=== PATIENT | male | born 1960 | race Caucasian/White ===

== ENCOUNTER 2016-11-21 09:14 | Emergency (ER) | payer OTHER ==
[2016-11-21 09:28] VITALS: BMI 34.7
--- NOTE | 2016-11-21 09:45 | PDOC ---
History of Present Illness - General History Source: Patient, Spouse Exam Limitations: No Limitations - History of Present Illness Initial Comments: 11/21/16 10:13 The patient is a 56-year-old man, accompanied by his , with no past medical history who presents to the emergency department with complaints of abdominal pain for the past 2 months. Patient states he underwent an umbilical hernia repair in May but has been experiencing mid-epigastric pain, described as a tight sensations, that radiates down his left lower quadrant with a rated 7/10 in severity. He notes that his abdominal pain is worse after eating meals. He states that his abdominal pain has worsened, as of this morning, as he became nauseous and vomited twice this morning (NBNB). He also reports having a slight headache and to be slightly lightheaded, as a result of vomiting. He took Tylenol for his headache this morning that provided little relief. No visual changes, neck pain, back pain, chets pain, cough, shortness of breath. He also notes experiencing suprapubic pain, dysuria, described as burning sensations and penile pain when he urinates. He also expresses that he feels as if his urine is thicker than usual. No flank pain, hematuria. No changes in his bowel movements. Last bowel movement was at approximately 04:30 this morning and was normal. No hematochezia, melena. Allergies: None Known Past Surgical History: Questionable Cholecystectomy. Umbilical Hernia. Social History: Current everyday smoker (smokes approximately 10 cigarettes/day ; wants to quit). No EtOH and recreational drug use. <Juliette Younger - Last Filed: 11/21/16 10:44> <Joan Ruiz - Last Filed: 11/21/16 15:08> - General Chief Complaint: Pain, Acute Stated Complaint: ABD PAIN Time Seen by Provider: 11/21/16 09:35 Past History <Juliette Younger - Last Filed: 11/21/16 10:44> - Past Medical History Other medical history: DENIES. - Surgical History Abdominal Surgery: Yes (HERNIA) - Psycho/Social/Smoking Cessation Hx Suicidal Ideation: No Smoking History: Current every day smoker Have you smoked in the past 12 months: Yes Information on smoking cessation initiated: No <Joan Ruiz - Last Filed: 11/21/16 15:08> - Past Medical History Allergies/Adverse Reactions: Allergies Allergy/AdvReac Type Severity Reaction Status Date / Time No Known Allergies Allergy Verified 11/21/16 09:23 Home Medications: Ambulatory Orders Oxycodone HCl/Acetaminophen [Percocet 5-325 mg Tablet] 1 tab PO Q6H PRN #12 tablet MDD 4 tabs 11/21/16 Review of Systems - Review of Systems Able to Perform ROS?: Yes Comments:: 11/21/16 10:13 GENERAL/CONSTITUTIONAL: No fever or chills. No weakness. HEAD, EYES, EARS, NOSE AND THROAT: No change in vision. No ear pain or discharge. No sore throat. CARDIOVASCULAR: No chest pain or shortness of breath. RESPIRATORY: No cough, wheezing, or hemoptysis. GASTROINTESTINAL: Yes: Abdominal Pain. Nausea. Vomiting. No diarrhea or constipation. GENITOURINARY: Yes: Dysuria. Change in urination. No frequency. MUSCULOSKELETAL: No joint or muscle swelling or pain. No neck or back pain. SKIN: No rash NEUROLOGIC: Yes: Headache. Lightheadedness. No vertigo, loss of consciousness, or change in strength/sensation. ENDOCRINE: No increased thirst. No abnormal weight change. HEMATOLOGIC/LYMPHATIC: No anemia, easy bleeding, or history of blood clots. ALLERGIC/IMMUNOLOGIC: No hives or skin allergy. <Juliette Younger - Last Filed: 11/21/16 10:44> *Physical Exam - Vital Signs Last Vital Signs Temp Pulse Resp BP Pulse Ox 98.1 F 67 19 115/80 97 11/21/16 09:23 11/21/16 09:23 11/21/16 09:23 11/21/16 09:23 11/21/16 09:23 - Physical Exam Comments: 11/21/16 10:13 GENERAL: Awake, alert, and fully oriented, in no acute distress HEAD: No signs of trauma EYES: PERRLA, EOMI, sclera anicteric, conjunctiva clear ENT: Auricles normal inspection, hearing grossly normal, nares patent, oropharynx clear without exudates. Moist mucosa NECK: Normal ROM, supple, no lymphadenopathy, JVD, or masses LUNGS: Breath sounds equal, clear to auscultation bilaterally. No wheezes, and no crackles HEART: Regular rate and rhythm, normal S1 and S2, no murmurs, rubs or gallops ABDOMEN: Soft, nontender, normoactive bowel sounds. No guarding, no rebound. No masses EXTREMITIES: Normal range of motion, no edema. No clubbing or cyanosis. No cords, erythema, or tenderness NEUROLOGICAL: Cranial nerves II through XII grossly intact. Normal speech <Juliette Younger - Last Filed: 11/21/16 10:44> - Vital Signs Last Vital Signs Temp Pulse Resp BP Pulse Ox 98.1 F 67 19 115/80 97 11/21/16 09:23 11/21/16 09:23 11/21/16 09:23 11/21/16 09:23 11/21/16 09:23 - Physical Exam Comments: GENERAL: Awake, alert, and fully oriented, in no acute distress. Appears uncomfortable. HEAD: No signs of trauma EYES: PERRLA, EOMI, +scleral icterus, conjunctiva clear ENT: Auricles normal inspection, hearing grossly normal, nares patent, oropharynx clear without exudates. Moist mucosa NECK: Normal ROM, supple, no lymphadenopathy, JVD, or masses LUNGS: Breath sounds equal, clear to auscultation bilaterally. No wheezes, and no crackles HEART: Regular rate and rhythm, normal S1 and S2, no murmurs, rubs or gallops ABDOMEN: Soft, +epigastric tenderness, hyperactive bowel sounds. No guarding, no rebound. No masses EXTREMITIES: Normal range of motion, no edema. No clubbing or cyanosis. No cords, erythema, or tenderness NEUROLOGICAL: Cranial nerves II through XII grossly intact. Normal speech, normal gait SKIN: Warm, Dry, normal turgor, no rashes or lesions noted. <Joan Ruiz - Last Filed: 11/21/16 15:08> ED Treatment Course - LABORATORY CBC & Chemistry Diagram: 11/21/16 09:45 11/21/16 09:45 <Juliette Younger - Last Filed: 11/21/16 10:44> - LABORATORY CBC & Chemistry Diagram: 11/21/16 09:45 11/21/16 09:45 <Joan Ruiz - Last Filed: 11/21/16 15:08> Medical Decision Making - Medical Decision Making CT results d/w patient and at bedside. No acute findings. Stable for DC home with outpatient f/u. <Joan Ruiz - Last Filed: 11/21/16 15:08> *DC/Admit/Observation/Transfer - Attestations Scribe Attestion: 11/21/16 10:13 Documentation prepared by Juliette Younger, acting as medical editor for Joan Ruiz MD. <Juliette Younger - Last Filed: 11/21/16 10:44> - Discharge Dispostion Admit: No <Joan Ruiz - Last Filed: 11/21/16 15:08> Diagnosis at time of Disposition: Abdominal pain Qualifiers: Abdominal location: upper abdomen, unspecified Qualified Code(s): R10.10 - Upper abdominal pain, unspecified - Discharge Dispostion Disposition: HOME Condition at time of disposition: Stable - Prescriptions Prescriptions: Oxycodone HCl/Acetaminophen [Percocet 5-325 mg Tablet] 1 tab PO Q6H PRN #12 tablet MDD 4 tabs PRN Reason: Severe Pain - Referrals Referrals: Shae Hu MD [Primary Care Provider] - - Patient Instructions Printed Discharge Instructions: DI for Abdominal Pain-Adult Print Language: PORTUGUESE
[2016-11-21 10:13] LABS: BASOPHIL 0.8 % (0-2.0); EOSINOPHIL 1.3 % (0-4.5); MCH 32.3 pg (25.7-33.7); MCHC 33.8 g/dl (32.0-35.9); MEAN CELL VOLUME 95.8 fl (80-96); MEAN PLT VOLUME 7.7 fl (7.5-11.1); NEUTROPHILS 52.9 % (42.8-82.8); PLATELET COUNT 222 K/MM3 (134-434); RDW 13.5 % (11.9-15.9); WHITE BLOOD COUNT 7.1 K/mm3 (4.0-10.0)
[2016-11-21 10:30] LABS: INR 0.88 (0.82-1.09); PROTHROMBIN TIME (PATIENT) 9.6 SEC (9.98-11.88)
[2016-11-21 10:35] LABS: ALBUMIN 3.6 g/dl (3.4-5.0); ALK PHOS 122 U/L (45-117); ANION GAP 6 (8-16); BILIRUBIN,TOTAL 0.4 mg/dL (0.2-1.0); CALCIUM 8.6 mg/dL (8.5-10.1); CO2 23 mmol/L (21-32); CREATININE 0.9 mg/dL (0.7-1.3); GLUCOSE,RANDOM 120 mg/dL (74-106); SGOT/AST 17 U/L (15-37); SGPT/ALT 28 U/L (12-78); TOT PROT 6.7 g/dl (6.4-8.2)
[2016-11-21 10:40] LABS: URINE APPEARANCE CLEAR; URINE BILIRUBIN NEGATIVE (NEGATIVE); URINE BLOOD NEGATIVE (NEGATIVE); URINE COLOR COLORLESS; URINE GLUCOSE (UA) NEGATIVE (NEGATIVE); URINE KETONE NEGATIVE (NEGATIVE); URINE LEUK ESTERASE NEGATIVE (NEGATIVE); URINE NITRITE NEGATIVE (NEGATIVE); URINE PROTEIN NEGATIVE (NEGATIVE); URINE UROBILINOGEN NEGATIVE E.U./dl (0.2-1.0)
[2016-11-21 14:34] VITALS: BP 122/82; PULSE 72; TEMP 97.8
== END 2016-11-21 14:34 | disposition home or self-care (01) ==
LOC: JER 09:14
DX: R10.10 Upper abdominal pain, unspecified (principal); F17.210 Nicotine dependence, cigarettes, uncomplicated
CPT/HCPCS: 36415; 74177-TC; 80053; 81003; 83605; 83690; 85025; 85610; 86850; 86900; 86901; 87086; 99283-25

== ENCOUNTER 2023-07-11 17:18 | Observation (INO) | payer OTHER ==
[2023-07-11 17:24] VITALS: BMI 29.7
[2023-07-11] MEDS ORDERED: KETOROLAC TROMETHAMINE 30 MG/1 ML VIAL ONE (18:05)
[2023-07-11] MEDS ORDERED: FAMOTIDINE 20 MG/50 ML IVPB 20 MG/50 ML MG IVPB ONE (18:06)
[2023-07-11] MEDS: KETOROLAC TROMETHAMINE 15 MG/ML VIAL IVPUSH ONE (18:18)
[2023-07-11] MEDS: FAMOTIDINE 20 MG/50 ML IVPB 20 MG/50 ML MG IVPB ONE (18:18)
[2023-07-11 18:25] LABS: BASO % 0.7 % (0-2.0); EOS % 1.5 % (0-4.5); HEMATOCRIT 45.5 % (35.4-49); HEMOGLOBIN 15.9 GM/dL (11.7-16.9); LYMPH % 36.3 % (8-40); MCH 33.1 pg (25.7-33.7); MEAN CELL VOLUME 94.8 fl (80-96); MEAN PLT VOLUME 8.3 fl (7.5-11.1); MONO % 5.2 % (3.8-10.2); NEUT % 56.3 % (42.8-82.8); PLATELET COUNT 252 10^3/uL (134-434); WHITE BLOOD COUNT 7.5 K/mm3 (4.0-10.0)
[2023-07-11] MEDS ORDERED: MAG HYDROX/AL HYDROX/SIMETH 30 ML UNIT-DOSE CUP ONE (18:52)
[2023-07-11] MEDS ORDERED: LIDOCAINE VISCOUS 2% ORAL/TOP 15 ML UNIT-DOSE CUP ONE (18:52)
[2023-07-11 18:54] LABS: CHLORIDE 96 mmol/L (98-107); POTASSIUM 3.6 mmol/L (3.5-5.1); SODIUM 136 mmol/L (136-145)
[2023-07-11 18:57] LABS: ALBUMIN 3.6 g/dl (3.4-5.0); ANION GAP 15 mmol/L (4-13); BLOOD UREA NITROGEN 9.5 mg/dL (7-18); CO2 25 mmol/L (21-32)
[2023-07-11 19:00] LABS: CREATININE 1.1 mg/dL (0.55-1.3); SGOT/AST 15 U/L (15-37); SGPT/ALT 30 U/L (13-61)
[2023-07-11 19:02] LABS: BILIRUBIN,TOTAL 0.9 mg/dL (0.2-1); TOT PROT 7.2 g/dl (6.4-8.2)
[2023-07-11 19:03] LABS: ALK PHOS 109 U/L (45-117)
[2023-07-11 19:07] LABS: GLUCOSE,RANDOM 503 mg/dL (74-106)
[2023-07-11] MEDS: MAG HYDROX/AL HYDROX/SIMETH 30 ML UNIT-DOSE CUP PO ONE (20:12)
[2023-07-11] MEDS: LIDOCAINE VISCOUS 2% ORAL/TOP 15 ML UNIT-DOSE CUP MM ONE (20:12)
[2023-07-11] MEDS: SODIUM CHLORIDE 1,000 ML IV STA (20:12)
[2023-07-11 20:17] LABS: VENOUS O2 SATURATION 95.6 % (70-80); VENOUS PH 7.347 (7.310-7.410)
[2023-07-11] MEDS ORDERED: POTASSIUM CHLORIDE ORAL LIQUID 20 MEQ/15 ML ONE (21:25)
[2023-07-11] MEDS: KCL 10 MEQ IVPB 10 MEQ/100 ML INFUS.BAG IVPB SCH (21:58)
[2023-07-11] MEDS: INSULIN REGULAR HUMAN 100 UNITS/ML *VIAL IVPUSH ONE (21:58)
[2023-07-11] MEDS: POTASSIUM CHLORIDE ORAL LIQUID 20 MEQ/15 ML PO ONE (21:58)
[2023-07-11] MEDS: SODIUM CHLORIDE 1,000 ML IV SCH (23:39)
[2023-07-12 00:47] LABS: POTASSIUM 4.4 mmol/L (3.5-5.1)
[2023-07-12 00:49] LABS: BLOOD UREA NITROGEN 12.7 mg/dL (7-18); CALCIUM 8.4 mg/dL (8.5-10.1)
[2023-07-12 06:25] LABS: BASO % 0.7 % (0-2.0); EOS % 3.2 % (0-4.5); HEMATOCRIT 42.4 % (35.4-49); HEMOGLOBIN 14.4 GM/dL (11.7-16.9); LYMPH % 53.4 % (8-40); MCH 32.5 pg (25.7-33.7); MCHC 33.9 g/dl (32.0-35.9); MEAN CELL VOLUME 95.8 fl (80-96); MONO % 6.4 % (3.8-10.2); NEUT % 36.3 % (42.8-82.8); PLATELET COUNT 217 10^3/uL (134-434); RBC 4.42 M/mm3 (4.00-5.60); RDW 13.2 % (11.9-15.9)
[2023-07-12 07:56] LABS: ALBUMIN 3.1 g/dl (3.4-5.0); BILIRUBIN,TOTAL 0.8 mg/dL (0.2-1); BLOOD UREA NITROGEN 10.9 mg/dL (7-18); CALCIUM 7.9 mg/dL (8.5-10.1); POTASSIUM 4.4 mmol/L (3.5-5.1); TOT PROT 5.9 g/dl (6.4-8.2)
[2023-07-12] MEDS ORDERED: INSULIN (NOVOLOG) ASPART 100 UNITS/ML 10ML VIAL ONE ×4 (08:37→22:11)
[2023-07-12] MEDS: INSULIN ASPART SLIDING SCALE (NOVOLOG) 1 VIAL SQ SCH (08:43)
[2023-07-12] MEDS ORDERED: ACETAMINOPHEN 325 MG TABLET (FP) PO PRN (08:54)
[2023-07-12] MEDS ORDERED: HEPARIN NA (PORCINE) 5,000 UNITS/ML 1ML VIAL ONE ×2 (09:54→22:01)
[2023-07-12] MEDS ORDERED: metFORMIN HCL 500 MG TABLET (FP) ONE ×2 (09:54→16:30)
[2023-07-12] MEDS ORDERED: ENALAPRIL MALEATE 5 MG TABLET ONE (09:54)
[2023-07-12] MEDS ORDERED: glipiZIDE 5 MG TABLET (FP) ONE ×2 (09:54→16:29)
[2023-07-12] MEDS: glipiZIDE 5 MG TABLET (FP) PO SCH (10:04)
[2023-07-12] MEDS: HEPARIN NA (PORCINE) 5,000 UNITS/ML 1ML VIAL SQ SCH (10:04)
[2023-07-12] MEDS: metFORMIN HCL 500 MG TABLET (FP) PO SCH (10:04)
[2023-07-12] MEDS: ENALAPRIL MALEATE 2.5 MG TABLET PO SCH (10:04)
[2023-07-12] MEDS ORDERED: ATORVASTATIN CA 10 MG TABLET (FP) ONE (22:01)
[2023-07-12] MEDS: ATORVASTATIN CA 10 MG TABLET (FP) PO SCH (22:10)
[2023-07-13] MEDS ORDERED: INSULIN (NOVOLOG) ASPART 100 UNITS/ML 10ML VIAL ONE ×2 (05:36→05:38)
[2023-07-13 08:18] LABS: POTASSIUM 4.2 mmol/L (3.5-5.1)
[2023-07-13 08:19] LABS: BASO % 0.5 % (0-2.0); EOS % 2.3 % (0-4.5); HEMATOCRIT 42.3 % (35.4-49); HEMOGLOBIN 14.3 GM/dL (11.7-16.9); LYMPH % 54.2 % (8-40); MCH 32.7 pg (25.7-33.7); MCHC 33.9 g/dl (32.0-35.9); MEAN CELL VOLUME 96.4 fl (80-96); MEAN PLT VOLUME 8.4 fl (7.5-11.1); MONO % 4.3 % (3.8-10.2); NEUT % 38.7 % (42.8-82.8); PLATELET COUNT 202 10^3/uL (134-434); RBC 4.39 M/mm3 (4.00-5.60); WHITE BLOOD COUNT 6.1 K/mm3 (4.0-10.0)
[2023-07-13 08:23] LABS: ALBUMIN 2.9 g/dl (3.4-5.0); CALCIUM 8.1 mg/dL (8.5-10.1)
[2023-07-13 08:25] LABS: CREATININE 0.9 mg/dL (0.55-1.3)
[2023-07-13 08:27] LABS: BILIRUBIN,TOTAL 0.9 mg/dL (0.2-1); TOT PROT 5.8 g/dl (6.4-8.2)
[2023-07-13 09:58] VITALS: BP 111/62; PULSE 61; RESP 18; TEMP 98.8
== END 2023-07-13 15:34 | disposition home or self-care (01) ==
LOC: JER 17:18 → JERBED 23:13 → J4W 07-12 22:47
PROVIDERS: ADMIT Internal Medicine; ATTEND Internal Medicine
PROC: 3E033GC Introduction of Other Therapeutic Substance into Peripheral Vein, Percutaneous Approach (ICD-10-PCS; principal; 2023-07-11)
PROC: 3E023GC Introduction of Other Therapeutic Substance into Muscle, Percutaneous Approach (ICD-10-PCS; 2023-07-11)
PROC: 3E013VG Introduction of Insulin into Subcutaneous Tissue, Percutaneous Approach (ICD-10-PCS; 2023-07-11)
PROC: 3E0333Z Introduction of Anti-inflammatory into Peripheral Vein, Percutaneous Approach (ICD-10-PCS; 2023-07-11)
PROC: 3E0337Z Introduction of Electrolytic and Water Balance Substance into Peripheral Vein, Percutaneous Approach (ICD-10-PCS; 2023-07-11)
DX: R07.89 Other chest pain (principal); K31.84 Gastroparesis; E11.43 Type 2 diabetes mellitus with diabetic autonomic (poly)neuropathy; R07.9 Chest pain, unspecified; R06.02 Shortness of breath; F17.200 Nicotine dependence, unspecified, uncomplicated; I10 Essential (primary) hypertension
CPT/HCPCS: 36415; 71046-TC-FY; 71275-TC; 74174-TC; 80048; 80053; 80061; 82010; 82803; 82962; 83036; 83690; 84443; 84484; 85025; 93005; 93010; 96361; 96365; 96372; 96375; 99285-25; G0378; J1644

== ENCOUNTER 2024-06-30 09:03 | Observation (INO) | payer OTHER ==
[2024-06-30] MEDS ORDERED: oxyCODONE HCL 5 MG TABLET ONE (10:15)
[2024-06-30] MEDS: oxyCODONE HCL 5 MG TABLET PO ONE (10:17)
[2024-06-30 10:37] LABS: BASO % 0.5 % (0-2.0); EOS % 2.5 % (0-4.5); HEMATOCRIT 46.3 % (35.4-49); HEMOGLOBIN 15.9 GM/dL (11.7-16.9); LYMPH % 22.4 % (8-40); MCH 32.5 pg (25.7-33.7); MCHC 34.3 g/dl (32.0-35.9); MEAN CELL VOLUME 94.8 fl (80-96); MEAN PLT VOLUME 8.3 fl (7.5-11.1); MONO % 6.9 % (3.8-10.2); NEUT % 67.7 % (42.8-82.8); PLATELET COUNT 159 10^3/uL (134-434); RBC 4.88 M/mm3 (4.00-5.60); RDW 12.7 % (11.9-15.9); WHITE BLOOD COUNT 5.6 K/mm3 (4.0-10.0)
[2024-06-30 10:49] LABS: PROTHROMBIN TIME (PATIENT) 10.9 SEC (9.7-13.0)
[2024-06-30 11:00] LABS: POTASSIUM 3.5 mmol/L (3.5-5.1)
[2024-06-30 11:02] LABS: ALBUMIN 3.7 g/dl (3.4-5.0); CALCIUM 9.1 mg/dL (8.5-10.1)
[2024-06-30 11:03] LABS: BLOOD UREA NITROGEN 12.7 mg/dL (7-18)
[2024-06-30 11:07] LABS: TOT PROT 7.5 g/dl (6.4-8.2)
[2024-06-30 11:08] LABS: BILIRUBIN,TOTAL 1.2 mg/dL (0.2-1)
[2024-06-30] MEDS ORDERED: ENOXAPARIN NA (PORCINE) 80 MG/0.8 ML DISP.SYRIN SQ ONE (11:14)
[2024-06-30] MEDS: ENOXAPARIN NA (PORCINE) 80 MG/0.8 ML DISP.SYRIN SQ ONE (11:20)
[2024-06-30 14:20] VITALS: BMI 32.3
[2024-06-30] MEDS: metFORMIN HCL 500 MG TABLET (FP) PO SCH (16:25)
[2024-06-30] MEDS: INSULIN ASPART SLIDING SCALE (NOVOLOG) 1 VIAL SQ SCH (16:25)
[2024-06-30] MEDS: glipiZIDE 5 MG TABLET (FP) PO SCH (16:25)
[2024-06-30] MEDS: ACETAMINOPHEN 325 MG TABLET (FP) PO PRN (16:26)
[2024-06-30] MEDS: ATORVASTATIN CA 10 MG TABLET (FP) PO SCH (22:16)
[2024-06-30] MEDS: OSELTAMIVIR PHOSPHATE 75 MG CAPSULE PO SCH (22:16)
[2024-06-30] MEDS: ENOXAPARIN NA (PORCINE) 80 MG/0.8 ML DISP.SYRIN SQ SCH (22:16)
[2024-07-01 08:04] LABS: BASO % 0.4 % (0-2.0); HEMATOCRIT 43.7 % (35.4-49); HEMOGLOBIN 14.9 GM/dL (11.7-16.9); LYMPH % 53.1 % (8-40); MCHC 34.2 g/dl (32.0-35.9); MEAN CELL VOLUME 93.8 fl (80-96); MEAN PLT VOLUME 7.9 fl (7.5-11.1); MONO % 9.1 % (3.8-10.2); NEUT % 33.4 % (42.8-82.8); PLATELET COUNT 161 10^3/uL (134-434); RBC 4.66 M/mm3 (4.00-5.60); RDW 12.7 % (11.9-15.9); WHITE BLOOD COUNT 4.3 K/mm3 (4.0-10.0)
[2024-07-01 08:30] LABS: POTASSIUM 3.4 mmol/L (3.5-5.1)
[2024-07-01 08:36] LABS: ALBUMIN 3.3 g/dl (3.4-5.0); BLOOD UREA NITROGEN 13.4 mg/dL (7-18); CALCIUM 8.8 mg/dL (8.5-10.1)
[2024-07-01 08:41] LABS: BILIRUBIN,TOTAL 1.4 mg/dL (0.2-1); CREATININE 0.9 mg/dL (0.55-1.3); TOT PROT 6.7 g/dl (6.4-8.2)
[2024-07-01] MEDS: ENALAPRIL MALEATE 2.5 MG TABLET PO SCH (11:07)
[2024-07-01] MEDS: ENOXAPARIN NA (PORCINE) 80 MG/0.8 ML DISP.SYRIN SQ ONE (11:25)
[2024-07-01 14:51] VITALS: BP 128/78; PULSE 57; RESP 18; TEMP 98.1
[2024-07-01] MEDS ORDERED: APIXABAN 5 MG TABLET PO SCH (22:00)
== END 2024-07-01 18:44 | disposition home or self-care (01) ==
LOC: JERFT 09:03 → JER 09:03 → JERBED 13:34 → J7W 14:01
PROVIDERS: ADMIT Internal Medicine; ATTEND Internal Medicine
PROC: 3E023GC Introduction of Other Therapeutic Substance into Muscle, Percutaneous Approach (ICD-10-PCS; principal; 2024-06-30)
DX: I82.492 Acute embolism and thrombosis of other specified deep vein of left lower extremity (principal); E11.9 Type 2 diabetes mellitus without complications; I10 Essential (primary) hypertension; E78.5 Hyperlipidemia, unspecified; F17.210 Nicotine dependence, cigarettes, uncomplicated
CPT/HCPCS: 0241U-QW; 36415; 71046-TC-FY; 80053; 82962; 83036; 85025; 85610; 93005; 93010; 93971-TC; 96372; 99285-25; G0378